=== PATIENT | female | born 1975 | race African-American/Black ===

== ENCOUNTER 2017-07-14 03:45 | Emergency (ER) | payer SELFPAY ==
[~2017-07-14] VITALS: Ht 154.9 cm; Wt 100.0 kg
[2017-07-14 05:42] LABS: CLARITY URINE CLEAR (CLEAR); COLOR URINE YELLOW (YELLOW); GLUCOSE URINE NEGATIVE (NEGATIVE); KETONES URINE 3+ (NEGATIVE); LEUKOCYTE ESTERASE URINE 2+ (NEGATIVE); NITRITE URINE NEGATIVE (NEGATIVE); OCCULT BLOOD URINE 1+ (NEGATIVE); PH URINE 5.5 (4.5-8.0); PROTEIN URINE TRACE (NEGATIVE); SPECIFIC GRAVITY URINE 1.027 (1.005-1.030)
[2017-07-14 06:00] VITALS: BP 127/80
[2017-07-14] MEDS ORDERED: IBUPROFEN 600MG TABLET PO ONE (06:30)
== END 2017-07-14 06:30 | disposition home or self-care (01) ==
LOC: ER 03:46
DX: N39.0 Urinary tract infection, site not specified (principal); M54.5 Low back pain; D57.1 Sickle-cell disease without crisis; Z98.890 Other specified postprocedural states
CPT/HCPCS: 81001; 81025; 99283